=== PATIENT | female | born 2000 | race Caucasian/White ===

== ENCOUNTER 2022-12-02 16:55 | Emergency (ER) | payer BC, OTHER ==
[2022-12-02] MEDS ORDERED: Acetaminophen 325 MG Tab PO ONE (17:33)
== END 2022-12-02 19:18 | disposition home or self-care (01) ==
LOC: JD.ED 16:55
DX: S93.402A Sprain of unspecified ligament of left ankle, initial encounter (principal); X50.9XXA Other and unspecified overexertion or strenuous movements or postures, initial encounter; Y93.68 Activity, volleyball (beach) (court)
CPT/HCPCS: 73610; 73630; 99283; A9270